=== PATIENT | female | born 1995 | race Caucasian/White ===

== ENCOUNTER 2021-09-21 17:15 | Inpatient (IN) | payer OTHER ==
[~2021-09-21] VITALS: Ht 160 cm; Wt 57.0 kg
[2021-09-21] MEDS ORDERED: NS 1,000 ML IV ONE ×2 (17:20→18:25)
[2021-09-21] MEDS: MIDAZOLAM INJ 2MG/2ML VIAL (J2250 PER 1MG) IV PRN ×2 (17:35→18:08)
[2021-09-21 17:37] LABS: BASO % 0.1 % (0.0-1.0); HEMATOCRIT 42.5 % (36.0-47.0); LYMPH % 5.1 % (24.0-44.0); MEAN CORPUSCULAR HEMOGLOBIN 31.1 pg (27.0-33.0); MEAN CORPUSCULAR HGB CONC 32.9 g/dl (32.0-36.5); MEAN CORPUSCULAR VOLUME 94.4 fl (80.0-96.0); MONO # 0.7 10^3/uL (0.0-0.8); MONO % 3.8 % (2.0-8.0); NEUTROPHILS # 17.1 10^3/uL (1.5-8.5); NEUTROPHILS % 90.4 % (36.0-66.0); PLATELET COUNT, AUTOMATED 329 10^3/uL (150-450); WHITE BLOOD COUNT 18.9 10^3/uL (4.0-10.0)
[2021-09-21] MEDS ORDERED: levETIRAcetam INJection 1,000 MG in D5W 100 ML IV ONE (17:55)
[2021-09-21 18:24] LABS: ACETAMINOPHEN LEVEL 8.3 UG/ML (10.0-30.0); ALBUMIN 4.5 GM/DL (3.2-5.2); ALT/SGPT 48 U/L (12-78); BILIRUBIN,DIRECT < 0.1 MG/DL (0.0-0.2); BILIRUBIN,TOTAL 0.3 MG/DL (0.2-1.0); BLOOD UREA NITROGEN 13 MG/DL (7-18); CALCIUM LEVEL 9.7 MG/DL (8.5-10.1); CARBON DIOXIDE LEVEL 12 MEQ/L (21-32); CHLORIDE LEVEL 98 MEQ/L (98-107); CREATININE FOR GFR 0.99 MG/DL (0.55-1.30); ETHYL ALCOHOL (ETHANOL) < 0.003 % (0.000-0.010); GLOMERULAR FILTRATION RATE > 60.0 (>60); GLUCOSE, FASTING 126 MG/DL (70-100); POTASSIUM SERUM 3.9 MEQ/L (3.5-5.1); SALICYLATE LEVEL 1.8 MG/DL (5.0-30.0); SODIUM LEVEL 130 MEQ/L (136-145); TOTAL PROTEIN 8.5 GM/DL (6.4-8.2)
[2021-09-21 18:49] LABS: RSV AMPLIFICATION NEGATIVE (NEGATIVE)
[2021-09-21] MEDS ORDERED: APTI1TAB4 PO (19:36)
[2021-09-21] MEDS ORDERED: APTI1TAB2 PO (19:36)
[2021-09-21] MEDS ORDERED: SERT50TA29 PO (19:36)
[2021-09-21] MEDS ORDERED: [UNRECOGNIZED DRUG - CODE] PO (19:36)
[2021-09-21] MEDS ORDERED: HOME MED LIST COMPLETE! XX SCH (19:40)
[2021-09-21 20:58] LABS: AMPHETAMINES LEVEL URINE NEGATIVE (NEGATIVE); BARBITURATES URINE NEGATIVE (NEGATIVE); BENZODIAZEPINES URINE POSITIVE (NEGATIVE); CANNABINOIDS URINE NEGATIVE (NEGATIVE); COCAINE METABOLITE URINE NEGATIVE (NEGATIVE); METHADONE URINE NEGATIVE (NEGATIVE); OPIATES URINE NEGATIVE (NEGATIVE); PHENCYCLIDINE URINE NEGATIVE (NEGATIVE)
[2021-09-21] MEDS: NS 1,000 ML IV SCH (21:05)
[2021-09-21 23:09] VITALS: BP 101/56
[2021-09-21] MEDS ORDERED: MIDAZOLAM INJ 2MG/2ML VIAL (J2250 PER 1MG) IV PRN (23:10)
[2021-09-22] VITALS (8 sets, daily range): BP systolic 103–119; BP diastolic 57–66
[2021-09-22] MEDS ORDERED: ESLICARBAZEPINE 800 MG PO ONE (01:00)
[2021-09-22] MEDS ORDERED: ESLICARBAZEPINE PO ONE (01:00)
[2021-09-22] MEDS ORDERED: ESLICARBAZEPINE 400 MG PO ONE (01:00)
[2021-09-22] MEDS: ACETAMINOPHEN TAB 650MG DOSE (2X325MG) PO PRN (01:11)
[2021-09-22 05:11] LABS: HEMATOCRIT 33.1 % (36.0-47.0); MEAN CORPUSCULAR HEMOGLOBIN 31.5 pg (27.0-33.0); MEAN CORPUSCULAR HGB CONC 34.1 g/dl (32.0-36.5); MEAN CORPUSCULAR VOLUME 92.2 fl (80.0-96.0); PLATELET COUNT, AUTOMATED 235 10^3/uL (150-450); RED BLOOD COUNT 3.59 10^6/uL (4.00-5.40); WHITE BLOOD COUNT 8.7 10^3/uL (4.0-10.0)
[2021-09-22 05:23] LABS: HEMOGLOBIN 11.3 g/dl (12.0-15.5)
[2021-09-22 05:46] LABS: BLOOD UREA NITROGEN 7 MG/DL (7-18); CALCIUM LEVEL 8.4 MG/DL (8.5-10.1); CARBON DIOXIDE LEVEL 22 MEQ/L (21-32); CHLORIDE LEVEL 106 MEQ/L (98-107); CREATININE FOR GFR 0.49 MG/DL (0.55-1.30); GLOMERULAR FILTRATION RATE > 60.0 (>60); GLUCOSE, FASTING 102 MG/DL (70-100); MAGNESIUM LEVEL 1.7 MG/DL (1.8-2.4); POTASSIUM SERUM 3.7 MEQ/L (3.5-5.1); SODIUM LEVEL 136 MEQ/L (136-145)
[2021-09-22] MEDS: NS 1,000 ML IV SCH ×2 (08:55→17:38)
[2021-09-22] MEDS: SERTRALINE HCL 50 MG TAB PO SCH (08:55)
[2021-09-22] MEDS ORDERED: levETIRAcetam 250MG TABLET (KEPPRA) PO SCH (09:15)
[2021-09-22] MEDS ORDERED: APTI1TAB4 PO (12:10)
[2021-09-22] MEDS: ENOXAPARIN 40MG/0.4ML SYRINGE (J1650 PER 10MG) SC SCH (12:34)
[2021-09-22] MEDS ORDERED: MIDAZOLAM INJ 2MG/2ML VIAL (J2250 PER 1MG) IV PRN (14:30)
[2021-09-22] MEDS ORDERED: MAG SULF 1GM/100ML (MAG RUN) 1 GM in IV 1 EA IV ONE (20:10)
[2021-09-22] MEDS ORDERED: ESLICARBAZEPINE 800 MG PO SCH (21:00)
[2021-09-22] MEDS ORDERED: PHENYTOIN IV ONE (21:00)
[2021-09-22] MEDS ORDERED: NS IV ONE (21:00)
[2021-09-23] VITALS: BP 124/62
[2021-09-23] MEDS ORDERED: ONDANSETRON 4MG TAB PO PRN (02:55)
[2021-09-23] MEDS: ONDANSETRON 4MG 2ML VIAL IV SCH ×3 (03:24→16:17)
[2021-09-23 04:00] VITALS: BP 124/68
[2021-09-23] MEDS ORDERED: METOCLOPRAMIDE INJ 10MG/2ML VIAL (J2765 PER 1) IV STA (04:43)
[2021-09-23] MEDS: PHENYTOIN ER 100 MG CAP PO SCH ×2 (05:46→13:43)
[2021-09-23] MEDS: ACETAMINOPHEN TAB 650MG DOSE (2X325MG) PO PRN (05:47)
[2021-09-23 07:48] VITALS: BP 113/64
[2021-09-23] MEDS: SERTRALINE HCL 50 MG TAB PO SCH (10:23)
[2021-09-23] MEDS: ENOXAPARIN 40MG/0.4ML SYRINGE (J1650 PER 10MG) SC SCH (10:24)
[2021-09-23 11:13] LABS: HEMATOCRIT 33.8 % (36.0-47.0); HEMOGLOBIN 11.6 g/dl (12.0-15.5); MEAN CORPUSCULAR HEMOGLOBIN 31.7 pg (27.0-33.0); MEAN CORPUSCULAR HGB CONC 34.3 g/dl (32.0-36.5); MEAN CORPUSCULAR VOLUME 92.3 fl (80.0-96.0); PLATELET COUNT, AUTOMATED 242 10^3/uL (150-450); RED BLOOD COUNT 3.66 10^6/uL (4.00-5.40); WHITE BLOOD COUNT 5.6 10^3/uL (4.0-10.0)
[2021-09-23 11:45] LABS: BLOOD UREA NITROGEN 4 MG/DL (7-18); CARBON DIOXIDE LEVEL 28 MEQ/L (21-32); CHLORIDE LEVEL 107 MEQ/L (98-107); GLOMERULAR FILTRATION RATE > 60.0 (>60); GLUCOSE, FASTING 108 MG/DL (70-100); MAGNESIUM LEVEL 2.1 MG/DL (1.8-2.4); POTASSIUM SERUM 3.4 MEQ/L (3.5-5.1); SODIUM LEVEL 141 MEQ/L (136-145)
[2021-09-23 11:58] VITALS: BP 122/72
[2021-09-23] MEDS ORDERED: K-PHOS ORIGINAL (POT.ACID PHOSPHATE) 500MG TAB PO SCH (13:35)
[2021-09-23] MEDS ORDERED: POTASSIUM CHLORIDE 10MEQ SR TABLET PO ONE (14:00)
[2021-09-23] MEDS ORDERED: DILA100C PO (15:34)
[2021-09-23] MEDS ORDERED: KPHOS50TA PO (15:34)
[2021-09-23] MEDS ORDERED: APTI1TAB4 PO (15:35)
== END 2021-09-23 18:39 | disposition home or self-care (01) | DRG 53 ==
LOC: M ED 17:15 → M ED INP 17:16 → M PCU 23:01 → OBSVTOIN 09-23 10:34
PROVIDERS: ADMIT Internal Medicine; ATTEND Internal Medicine
DX: G40.409 Other generalized epilepsy and epileptic syndromes, not intractable, without status epilepticus (principal); E87.2 Acidosis; E83.39 Other disorders of phosphorus metabolism; E87.6 Hypokalemia; D64.9 Anemia, unspecified; Z79.899 Other long term (current) drug therapy